=== PATIENT | male | born 1990 | race Caucasian/White ===

== ENCOUNTER 2018-09-17 00:47 | Emergency (ER) | payer BC, MEDICAID, OTHER ==
--- NOTE | 2018-09-17 01:29 | EDM.PDOC ---
ED HPI GENERAL MEDICAL PROBLEM - General Chief Complaint: General Stated Complaint: SPITTING UP BLOOD Time Seen by Provider: 09/17/18 01:24 Source of Information: Reports: Patient History Limitations: Reports: No Limitations - History of Present Illness INITIAL COMMENTS - FREE TEXT/NARRATIVE: 28 yo male who complains of bleeding from the mouth. This happened after he came out of the shower. Describe s fresh blood,copious amounts.2 weeks ago he had surgery of the left parotid gland. Complains of no pain sore throat or other bleeding areas. No trauma. - Related Data Allergies Allergy/AdvReac Type Severity Reaction Status Date / Time No Known Allergies Allergy Verified 09/17/18 01:07 Home Meds: Home Meds Acetaminophen [Tylenol Extra Strength] 500 mg PO QID 09/17/18 [History] Gemfibrozil [Lopid] 600 mg PO DAILY 09/17/18 [History] Past Medical History HEENT History: Reports: Other (See Below) Other HEENT History: PHARYNGITIS Musculoskeletal History: Reports: Fracture Other Musculoskeletal History: HUNEROUS,FEMUR,JAW Endocrine/Metabolic History: Reports: Hypothyroidism Social & Family History - Tobacco Use Smoking Status *Q: Current Every Day Smoker Years of Tobacco use: 10 Packs/Tins Daily: 0.5 - Caffeine Use Caffeine Use: Reports: Coffee - Recreational Drug Use Recreational Drug Use: No ED ROS GENERAL - Review of Systems Review Of Systems: ROS reveals no pertinent complaints other than HPI. ED EXAM, GENERAL - Physical Exam Exam: See Below Free Text/Narrative:: The left carotid gland is swollen and tender from. Extends to the area of the paraspinal space. There is no warmth however redness. No drainage was noted. Oropharynx revealed some fresh blood on the left upper gum area but no active bleeding. Oropharynx is clear Course - Vital Signs Last Recorded V/S: Last Vital Signs Temp 98.6 F 09/17/18 01:09 Pulse Resp 18 09/17/18 01:09 BP 168/91 H 09/17/18 01:09 Pulse Ox 99 09/17/18 01:09 Departure - Departure Time of Disposition: 01:29 Disposition: Home, Self-Care 01 Condition: Good Clinical Impression: Hematoma - Discharge Information Referrals: Roney Parekh MD [Primary Care Provider] - - Problem List & Annotations (1) Hematoma SNOMED Code(s): 684278006 Code(s): T14.8XXA - OTHER INJURY OF UNSPECIFIED BODY REGION, INITIAL ENCOUNTER Status: Acute Current Visit: Yes (2) Parotid gland fullness SNOMED Code(s): 71550433 Code(s): K11.8 - OTHER DISEASES OF SALIVARY GLANDS Status: Acute Current Visit: Yes - Problem List Review Problem List Initiated/Reviewed/Updated: Yes - Assessment/Plan Plan: I reassured him.I believ ethe blled was from the parotid gland. Recommend follow up tomorrow with PCP or surgeon. Return to ED with any worsening tomorrow
[2018-09-17 02:23] VITALS: BP 159/85
== END 2018-09-17 01:50 | disposition home or self-care (01) ==
LOC: FB.ED 00:47
DX: M79.81 Nontraumatic hematoma of soft tissue (principal); Z79.899 Other long term (current) drug therapy
CPT/HCPCS: 99282